=== PATIENT | male | born 1960 | race Two or more races ===

== ENCOUNTER 2019-06-24 08:41 | Emergency (ER) | payer OTHER ==
[~2019-06-24] VITALS: Ht 188 cm; Wt 79.4 kg
[2019-06-24 08:43] VITALS: BP 140/90
--- NOTE | 2019-06-24 09:50 | NUR ---
patient provided with meal. patient complete with clothing. assisted with donning clothing
--- NOTE | 2019-06-24 10:00 | NUR ---
Patient discharged to in stable condition. Written and verbal after care instructions given. Patient verbalizes understanding of instruction. Patient refused any referrals, agreed to receive handouts regarding shelters. Patient verbalized he will arrange his own transportation, agreed for a Tap Card. Tap Card received from nursing supervisor [email or web address],.
== END 2019-06-24 10:12 | disposition home or self-care (01) ==
LOC: ER 08:43 → EDBD 08:43 → ER 10:12
DX: H11.32 Conjunctival hemorrhage, left eye (principal); Z59.0 Homelessness